=== PATIENT | male | born 1955 | race Caucasian/White ===

== ENCOUNTER → 2017-10-02 | Outpatient (CLI) | payer MEDICARE ==
[~2017-10-02] MED LIST: INVEGA6 MG PO; OXYBUTYNIN CHLO10 MG PO; SIMVASTATIN20 MG PO
== END | disposition home or self-care (01) ==
LOC: CDC 08:11
DX: Z01.810 Encounter for preprocedural cardiovascular examination (principal); N40.1 Benign prostatic hyperplasia with lower urinary tract symptoms; N13.8 Other obstructive and reflux uropathy; R33.8 Other retention of urine; R94.31 Abnormal electrocardiogram [ECG] [EKG]
CPT/HCPCS: 93000